=== PATIENT | female | born 1980 | race American Indian/Alaskan Native ===

== ENCOUNTER 2017-09-29 10:30 | Emergency (ER) | payer OTHER ==
[2017-09-29 10:53] VITALS: BP 148/97
[2017-09-29] MEDS ORDERED: ZOFRAN IV ONE (11:04)
[2017-09-29] MEDS ORDERED: SUBLIMAZE IV ONE (11:04)
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
[2017-09-29 12:08] LABS: Basophils # (Auto) 0.1 K/mm3 (0.0-0.1); Basophils % (Auto) 0.6 % (0.0-1.8); Eosinophils # (Auto) 0.1 K/mm3 (0.0-0.4); Eosinophils % (Auto) 0.8 % (0.0-4.3); Hematocrit 41.8 % (30.3-42.9); Lymphocytes # (Auto) 2.1 K/mm3 (1.2-5.4); Lymphocytes % (Auto) 24.8 % (13.4-35.0); Mean Corpuscular HGB Conc 34 % (30-34); Mean Corpuscular Hemoglobin 33 pg (28-32); Mean Corpuscular Volume 98 fl (79-97); Monocytes # (Auto) 0.9 K/mm3 (0.0-0.8); Platelet Count 281 K/mm3 (140-440); Red Blood Count 4.29 M/mm3 (3.65-5.03); Red Cell Distribution Width 12.6 % (13.2-15.2)
[2017-09-29 12:26] LABS: Creatine Kinase MB 2.5 ng/mL (0.0-4.0)
[2017-09-29 12:27] LABS: BUN/Creatinine Ratio 12; Blood Urea Nitrogen 6 mg/dL (7-17); Calcium 8.7 mg/dL (8.4-10.2); Hemolysis Index 14
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
[2017-09-29] MEDS ORDERED: PHENERGAN ONE (14:25)
[2017-09-29] MEDS ORDERED: PHENERGAN PO ONE (14:27)
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
== END 2017-09-29 15:33 | disposition home or self-care (01) ==
LOC: ED 10:30
DX: S09.90XA Unspecified injury of head, initial encounter (principal); S16.1XXA Strain of muscle, fascia and tendon at neck level, initial encounter; S29.012A Strain of muscle and tendon of back wall of thorax, initial encounter; S00.83XA Contusion of other part of head, initial encounter; I25.2 Old myocardial infarction; R07.89 Other chest pain; V79.10XA Passenger on bus injured in collision with unspecified motor vehicles in nontraffic accident, initial encounter; Y93.89 Activity, other specified; Y99.8 Other external cause status; Y92.488 Other paved roadways as the place of occurrence of the external cause
CPT/HCPCS: 36415; 70450; 70486; 71260; 72125; 80048; 82550; 82553; 84484; 84703; 85025; 93005; 93010; 96374; 96375; 99284; J2405; J3010; Q9967; Q0169